=== PATIENT | female | born 1980 | race Caucasian/White ===

== ENCOUNTER → 2018-07-14 | Outpatient (CLI) | payer BC | LOC: CARD 12:46 | PROVIDERS: ATTEND Internal Medicine Interventional Cardiology | DX: R07.9 Chest pain, unspecified (principal); I10 Essential (primary) hypertension | CPT/HCPCS: 93306 ==

== ENCOUNTER → 2018-07-15 | Outpatient (CLI) | payer BC ==
[2018-07-16 11:16] VITALS: BP 121/74
--- NOTE | 2018-07-16 11:16 | Cardiology Stress Test Report ---
Stress Test Report Date of Procedure/Referring: Date of Procedure: Jul 15, 2018 PCP Prince Booker MD Admitting Physician Burt Laboy MD Indications: Chest pain Baseline Heart Rate: 90 Baseline Blood Pressure: Blood Pressure Systolic: 121 Blood Pressure Diastolic: 74 Baseline EKG: Baseline EKG: sinus rhythm Summary/Conclusion: Summary: In summary, the patient started exercising with a baseline heart rate, blood pressure and EKG mentioned above Patient was able to exercise for a total of 9.11 minutes on Tian protocol, 10.5 METs Maximum heart rate 178bpm. Maximum blood pressure 169/82 Stress EKG Negative Recovery EKG Return to baseline Conclusion: 1. Good exercise tolerance. 2. Normal stress test. 3. No arrhythmia was noted Prince BOOKER MD Jul 16, 2018 11:16 am
== END ==
LOC: CARD 11:24 → EDUNIT# 11:30
PROVIDERS: ATTEND Internal Medicine Interventional Cardiology
DX: I10 Essential (primary) hypertension (principal); R07.9 Chest pain, unspecified
CPT/HCPCS: 93017

== ENCOUNTER → 2020-12-31 | Outpatient (CLI) | payer BC ==
--- NOTE | 2020-12-31 09:40 | Diagnostic Imaging Report ---
PROCEDURE: US Gallbladder. TECHNIQUE: Multiple Real-time grayscale images were obtained over the right upper quadrant in various projections. INDICATION: Epigastric pain. FINDINGS: The liver is normal in size without focal lesions. There is hepatopetal flow in the main portal vein. There is no biliary ductal dilatation. The common bile duct measures 4 mm. There is no cholelithiasis, gallbladder wall thickening, or pericholecystic fluid. The visualized portions of the pancreas are unremarkable. The aorta is nonaneurysmal. The IVC is patent. The right kidney is normal. There is no ascites. The Alamo's sign was negative. IMPRESSION: Unremarkable right upper quadrant ultrasound. Dictated by: Dictated on workstation # [id number]
== END ==
LOC: RAD 07:00
PROVIDERS: ATTEND Surgery
DX: R10.13 Epigastric pain (principal)
CPT/HCPCS: 76705

== ENCOUNTER 2021-01-10 05:31 | Outpatient (RCR) | payer BC ==
[~2021-01-10] VITALS: Ht 160 cm; Wt 100.5 kg
[~2021-01-10 05:31] MED LIST: CETI1TAB61 PO; CHOL500049 PO; CITA40TA11 PO; CITA40TA19 PO; FISH1CAP15 PO; FLUT9.9S NS; FOLI1TAB57 PO; LISI40TA9 PO; MAGN400T39 PO; MECO10005 PO
== END 2021-01-10 09:41 | disposition home or self-care (01) ==
LOC: PREOP 05:31
PROVIDERS: ATTEND Surgery
DX: Z01.818 Encounter for other preprocedural examination (principal)
CPT/HCPCS: 87635

== ENCOUNTER 2021-01-14 10:50 | Day surgery (SDC) | payer BC ==
[~2021-01-14] VITALS: Ht 157.5 cm; Wt 100.5 kg
[2021-01-14 11:00] VITALS: BP 135/64
[2021-01-14] MEDS ORDERED: LACTATED RINGERS 1,000 ML IV STA (11:05)
[2021-01-14] MEDS ORDERED: LACTATED RINGERS 1,000 ML IV ONE (11:05)
--- NOTE | 2021-01-14 11:10 | Progress Note-Pre Operative ---
Pre-Operative Progress Note H&P Reviewed The H&P was reviewed, patient examined and no changes noted. Time Seen by Provider: 11:09 Date H&P Reviewed: Jan 14, 2021 Time H&P Reviewed: 11:09 Pre-Operative Diagnosis: Chronic Gastritis, RUQ pain ARCHIE LEA DO Jan 14, 2021 11:10
[2021-01-14] MEDS ORDERED: HURRICAINE EXT TUBE (BENZOCAINE) XX PRN (11:15)
[2021-01-14] MEDS ORDERED: MIDAZOLAM 2 MG/2 ML (VERSED) VIAL ONE (11:58)
[2021-01-14] MEDS ORDERED: proPOfol 200 MG/20 ML (DIPRIVAN) VIAL IV ONE ×2 (11:58→12:13)
[2021-01-14 12:20] VITALS: BP 108/59
[2021-01-14 12:25] VITALS: BP 102/55
--- NOTE | 2021-01-14 12:25 | Progress Note-Post Operative ---
Post-Operative Progess Note Surgeon (s)/Fire Control Mechanic (s) Surgeon ARCHIE LEA DO Fire Control Mechanic: none Pre-Operative Diagnosis Chronic Gastritis, RUQ pain Post-Operative Diagnosis Gastritis Antral ulcer mild esophagitis Procedure & Operative Findings Date of Procedure 01/14/21 Procedure Performed/Findings EGD with bx PROCEDURE NOTE: After informed consent was obtained, the patient was brought to the endoscopy suite, placed in bed in left lateral decubitus position. She was administered IV sedation by the DIVORCE ATTORNEY who then monitored vitals the entire time, heart rate, blood pressure and pulse ox and the scope was inserted down the mouth through the esophagus into the stomach. On the way down, noted some mild esophagitis and then pushed into the stomach. Saw some gastritis here and then pushed past the antrum into the duodenum. Duodenum looked good. Pulled back and did a biopsy of the antrum and then noted what looked like an antral ulcer; took a picture and then did a boipsy. Next retroflexed the scope, did not see a hiatal hernia; took a picture and then pulled the scope into the GE junction. Did a biopsy of the GE junction. Pushed the scope back into the stomach, suctioned all the air out of the stomach. At this point pulled the scope up the esophagus and out the mouth. The patient tolerated the procedure, and she recovered in endoscopy suite. Anesthesia Type IV sedation by DIVORCE ATTORNEY Estimated Blood Loss Estimated blood loss (mL): scant Specimens/Packing Specimens Removed antral bx antral ulcer body of stomach GE jxARCHIE Urbina DO Jan 14, 2021 12:25
--- NOTE | 2021-01-14 12:26 | Endoscopy Discharge Instruct ---
Endo Procedure/Findings Findings 1.: Gastric Ulcer 2.: Gastritis Discharge Instructions - Activity: You might feel a little sleepy until tomorrow. This is due to the medicine you received to relax you. Until tomorrow, you should: NOT drive a car, operate machinery or power tools. NOT drink any alcoholic beverages. NOT make any important decisions or sign importortant papers. Do not return to work until tomorrow, unless otherwise instructed. Resume previous activities tomorrow. Diet: Start by taking liquids. If you tolerate liquids, advance to solid food. 1.: EGD in 3 years Notify Physician - If you experience excessive bleeding, unusual abdominal pain, fever, or chest pain, contact your doctor immediately. ARCHIE LEA DO Jan 14, 2021 12:26
[2021-01-14 12:30] VITALS: BP 110/64
--- NOTE | 2021-01-14 12:54 | Anesthesia-General Post-Op ---
MAC Patient Condition Mental Status/LOC: Same as Preop Cardiovascular: Satisfactory Nausea/Vomiting: Absent Respiratory: Satisfactory Pain: Controlled Complications: Absent Post Op Complications Complications None Follow Up Care/Instructions Patient Instructions None needed. Anesthesiology Discharge Order Discharge Order Patient is doing well, no complaints, stable vital signs, no apparent adverse anesthesia problems. No complications reported per nursing. STEFFANIE BYRD CRNA Jan 14, 2021 12:54
[2021-01-14 13:00] VITALS: BP 132/89
[2021-01-14 13:05] VITALS: BP 132/89
== END 2021-01-14 13:05 | disposition home or self-care (01) ==
LOC: ENDO 10:50
PROVIDERS: ATTEND Surgery
DX: K29.50 Unspecified chronic gastritis without bleeding (principal); I10 Essential (primary) hypertension; K25.9 Gastric ulcer, unspecified as acute or chronic, without hemorrhage or perforation; K20.90 Esophagitis, unspecified without bleeding; K31.A19 Gastric intestinal metaplasia without dysplasia, unspecified site; K21.9 Gastro-esophageal reflux disease without esophagitis; E66.9 Obesity, unspecified; Z68.41 Body mass index [BMI] 40.0-44.9, adult; Z79.899 Other long term (current) drug therapy; Z88.2 Allergy status to sulfonamides
CPT/HCPCS: 84703